=== PATIENT | female | born 1960 | race Caucasian/White ===

== ENCOUNTER 2022-06-07 22:55 | Emergency (ER) | payer BC ==
[~2022-06-07] VITALS: Ht 157.5 cm; Wt 65.9 kg
[2022-06-08 00:30] LABS: CLARITY,URINE CLOUDY (Clear); COLOR,URINE RED (Yellow)
[2022-06-08 00:31] LABS: UA COLLECTION TYPE NON-SPECIFIED
[2022-06-08 00:32] LABS: BASOPHILS % (AUTO) 0.1 % (0-1); EOSINOPHILS % (AUTO) 0.3 % (0-6); HEMATOCRIT 35.4 % (35.0-45.0); HEMOGLOBIN 12.1 g/dl (12.0-16.0); LYMPHOCYTES # (AUTO) 1.1 X10'3 (1.1-4.8); MEAN CORPUSCULAR HEMOGLOBIN 33.8 PG (27.0-31.0); MEAN CORPUSCULAR HGB CONC 34.3 g/dL (33.0-36.5); MEAN CORPUSCULAR VOLUME 98.8 FL (78-98); MEAN PLATELET VOLUME 9.4 FL (7.4-10.4); MONOCYTES # (AUTO) 0.3 X10'3 (0-0.9); MONOCYTES % (AUTO) 4.7 % (2-12); NEUTROPHILS # (AUTO) 5.5 X10'3 (1.8-7.7); NEUTROPHILS % (AUTO) 78.9 % (42-75); PLATELET COUNT 154 X10'3 (140-440); RED BLOOD COUNT 3.59 X10'6 (4.20-5.60); RED CELL DISTRIBUTION WIDTH 13.7 % (11.5-14.5); WHITE BLOOD COUNT 6.9 X10'3 (4.5-11.0)
[2022-06-08 00:38] LABS: RBC,URINE TNTC /HPF (0-2); WBC,URINE 0-4 /HPF (0-4)
[2022-06-08 00:39] LABS: BACTERIA,URINE FEW /HPF (Neg); SQUAMOUS EPITHELIAL CELL,UR NONE SEEN /LPF (FEW)
[2022-06-08 00:43] LABS: ALANINE AMINOTRANSFERASE 40 U/L (12-78); ALBUMIN 3.5 G/DL (3.4-5.0); ALBUMIN/GLOBULIN RATIO 1.3 (1.1-1.5); ALKALINE PHOSPHATASE 60 IU/L (46-116); ANION GAP 12 (8-16); ASPARTATE AMINO TRANSFERASE 28 U/L (10-37); BILIRUBIN,TOTAL 0.4 MG/DL (0.1-1.0); BLOOD UREA NITROGEN 15 MG/DL (7-18); BUN/CREATININE RATIO 24.2 (6.6-38.0); CALCIUM 8.5 MG/DL (8.5-10.1); CHLORIDE 106 MMOL/L (99-107); CREATININE 0.62 MG/DL (0.40-0.90); GLUCOSE 151 MG/DL (70-104); POTASSIUM 3.5 MMOL/L (3.5-5.1); SODIUM 142 MMOL/L (135-145); TOTAL PROTEIN 6.2 G/DL (6.4-8.2); eGFR > 90 ML/MIN
[2022-06-08] MEDS ORDERED: acetaminophen 325mg tablet PO ONE (02:00)
[2022-06-08] MEDS ORDERED: CEPH-585 PO (03:26)
[2022-06-08 05:03] VITALS: BP 99/53
--- NOTE | 2022-06-10 11:07 | NUR ---
Case management DC follow up:Spoke with Patient via telephone. S/P: Patient Reports: Denies : Acute/continuous C/P, emergent SOB, resp distress, dyspnea, N/V, vertigo, syncope episodes, orthostatic hypotension; however, verbalizes weakness at this time.Verbalizes she had been sent home from the ER with a Pickering Catheter.Verbalizes the Pickering has dark blood in the drainage bag. Verbalizes she can not get an appointment with PCP until June.Verbalizes Dr. Aguilar office requires a CT prior to scheduling an appointment. Denies: abdominal pain, flank pain, diaphoresis, fever, chills. I contacted [facility] and secured appointment for Patient on 06/13/22 0800; and was apprised they are addressing the CT test. I called Patient and apprised her of the follow up appointment.I advised Patient to return to the ER at this time.
== END 2022-06-08 05:05 | disposition home or self-care (01) ==
LOC: ER 22:56
DX: R33.9 Retention of urine, unspecified (principal); R31.9 Hematuria, unspecified; Z88.8 Allergy status to other drugs, medicaments and biological substances
CPT/HCPCS: 36415; 51702; 80053; 81001; 85025; 99284; A4358

== ENCOUNTER 2022-06-10 12:21 | Emergency (ER) | payer BC ==
[~2022-06-10] VITALS: Ht 157.5 cm; Wt 63.0 kg
[~2022-06-10 12:21] MED LIST: CEPH-585 PO
[2022-06-10 12:36] VITALS: BP 103/40
[2022-06-10] MEDS ORDERED: iohexol 350MG/ML 100ml bottle IV ONE (13:47)
[2022-06-10 16:45] LABS: BASOPHILS % (AUTO) 0.1 % (0-1); EOSINOPHILS # (AUTO) 0.1 X10'3 (0-0.9); HEMATOCRIT 32.4 % (35.0-45.0); LYMPHOCYTES % (AUTO) 25.2 % (21-51); MEAN CORPUSCULAR HEMOGLOBIN 33.6 PG (27.0-31.0); MEAN CORPUSCULAR HGB CONC 33.9 g/dL (33.0-36.5); MEAN CORPUSCULAR VOLUME 99.1 FL (78-98); MEAN PLATELET VOLUME 9.1 FL (7.4-10.4); MONOCYTES # (AUTO) 0.6 X10'3 (0-0.9); NEUTROPHILS # (AUTO) 5.1 X10'3 (1.8-7.7); NEUTROPHILS % (AUTO) 65.7 % (42-75); PLATELET COUNT 212 X10'3 (140-440); RED BLOOD COUNT 3.27 X10'6 (4.20-5.60); RED CELL DISTRIBUTION WIDTH 13.9 % (11.5-14.5); WHITE BLOOD COUNT 7.8 X10'3 (4.5-11.0)
[2022-06-10 16:56] LABS: ALANINE AMINOTRANSFERASE 31 U/L (12-78); ALBUMIN 3.5 G/DL (3.4-5.0); ALBUMIN/GLOBULIN RATIO 1.3 (1.1-1.5); ALKALINE PHOSPHATASE 65 IU/L (46-116); ANION GAP 9 (8-16); ASPARTATE AMINO TRANSFERASE 26 U/L (10-37); BILIRUBIN,TOTAL 0.4 MG/DL (0.1-1.0); BLOOD UREA NITROGEN 13 MG/DL (7-18); BUN/CREATININE RATIO 27.1 (6.6-38.0); CALCIUM 8.9 MG/DL (8.5-10.1); CHLORIDE 106 MMOL/L (99-107); CREATININE 0.48 MG/DL (0.40-0.90); GLUCOSE 100 MG/DL (70-104); SODIUM 139 MMOL/L (135-145); TOTAL CARBON DIOXIDE 24.1 MMOL/L (24-32); TOTAL PROTEIN 6.3 G/DL (6.4-8.2); eGFR > 90 ML/MIN
[2022-06-10 16:57] LABS: POTASSIUM 3.5 MMOL/L (3.5-5.1)
== END 2022-06-10 18:10 | disposition home or self-care (01) ==
LOC: ER 12:22
DX: R31.9 Hematuria, unspecified (principal); T83.9XXA Unspecified complication of genitourinary prosthetic device, implant and graft, initial encounter; R11.2 Nausea with vomiting, unspecified; N93.9 Abnormal uterine and vaginal bleeding, unspecified; N89.8 Other specified noninflammatory disorders of vagina; R50.9 Fever, unspecified; R05.9 Cough, unspecified; Z88.8 Allergy status to other drugs, medicaments and biological substances
CPT/HCPCS: 36415; 74178; 80053; 85025; 99285; J3490; Q9967